=== PATIENT | male | born 1985 | race Caucasian/White ===

== ENCOUNTER 2018-01-31 22:40 | Emergency (ER) | payer MEDICAID ==
[~2018-01-31] VITALS: Ht 190.5 cm; Wt 81.0 kg
[2018-02-01 00:05] VITALS: BP 142/92
[2018-02-01] MEDS ORDERED: CEPH500C5 PO (00:36)
[2018-02-01] MEDS ORDERED: TRAM50TA2 PO (00:36)
[2018-02-01] MEDS ORDERED: SULF1TAB49 PO (00:36)
== END 2018-02-01 01:03 | disposition home or self-care (01) ==
LOC: ER 22:41
DX: L02.413 Cutaneous abscess of right upper limb (principal); L03.113 Cellulitis of right upper limb; F17.200 Nicotine dependence, unspecified, uncomplicated; Z79.899 Other long term (current) drug therapy
CPT/HCPCS: 99283; A4565

== ENCOUNTER 2024-02-08 00:12 | Emergency (ER) | payer MEDICAID ==
[~2024-02-08] VITALS: Ht 190.5 cm; Wt 81.6 kg
[2024-02-08] MEDS ORDERED: iohexol 300mg/ml 100ml inj. ONE (00:28)
[2024-02-08 00:58] VITALS: TEMP 98.9
[2024-02-08 01:31] LABS: APTT 28 SECONDS (22-32); INR 1.1 INR; PROTHROMBIN TIME 11.4 SECONDS (9.0-12.0)
[2024-02-08 01:33] LABS: BASOPHILS % (AUTO) 0.3 % (0-1); EOSINOPHILS % (AUTO) 0.1 % (0-6); HEMATOCRIT 41.8 % (42.0-52.0); HEMOGLOBIN 14.7 g/dl (14.0-17.9); LYMPHOCYTES % (AUTO) 13.1 % (21-51); MEAN CORPUSCULAR HGB CONC 35.1 g/dL (33.0-36.5); MEAN CORPUSCULAR VOLUME 82.5 FL (78-98); MEAN PLATELET VOLUME 9.9 FL (7.4-10.4); MONOCYTES # (AUTO) 0.5 X10'3 (0-0.9); MONOCYTES % (AUTO) 6.2 % (2-12); NEUTROPHILS # (AUTO) 6.3 X10'3 (1.8-7.7); NEUTROPHILS % (AUTO) 80.3 % (42-75); PLATELET COUNT 185 X10'3 (140-440); RED BLOOD COUNT 5.06 X10'6 (4.70-6.10); RED CELL DISTRIBUTION WIDTH 13.6 % (11.5-14.5); WHITE BLOOD COUNT 7.8 X10'3 (4.5-11.0)
[2024-02-08 01:40] LABS: ALANINE AMINOTRANSFERASE 37 U/L (12-78); ALBUMIN 3.9 G/DL (3.4-5.0); ALBUMIN/GLOBULIN RATIO 1.1 (1.1-1.5); ALKALINE PHOSPHATASE 83 IU/L (46-116); ANION GAP 7 (8-16); ASPARTATE AMINO TRANSFERASE 38 U/L (10-37); BILIRUBIN,TOTAL 0.3 MG/DL (0.1-1.0); BLOOD UREA NITROGEN 18 MG/DL (7-18); BUN/CREATININE RATIO 17.6 (10.0-20.0); CALCIUM 9.3 MG/DL (8.5-10.1); CHLORIDE 104 MMOL/L (99-107); CREATININE 1.02 MG/DL (0.60-1.10); ETHANOL < 10 MG/DL (<10); GLUCOSE 90 MG/DL (70-104); POTASSIUM 3.7 MMOL/L (3.5-5.1); SODIUM 139 MMOL/L (135-145); TOTAL CARBON DIOXIDE 28.4 MMOL/L (24-32); TOTAL PROTEIN 7.5 G/DL (6.4-8.2); eCRCL 111 ML/MIN; eGFR 81 ML/MIN
[2024-02-08] MEDS: ondansetron/PF 4mg/2ml inj IV ONE (02:24)
[2024-02-08] MEDS: clindamycin 600mg/D5W 50ml 50 ML IV ONE (02:24)
[2024-02-08] MEDS: morphine 4 MG/ML inj SYRINge IV ONE (02:24)
[2024-02-08 06:45] VITALS: BP 127/79; PULSE 71; RESP 19; O2SAT 98
== END 2024-02-08 07:11 | disposition short-term general hospital (02) ==
LOC: ER 00:13
DX: S02.612B Fracture of condylar process of left mandible, initial encounter for open fracture (principal); S52.501A Unspecified fracture of the lower end of right radius, initial encounter for closed fracture; S02.2XXA Fracture of nasal bones, initial encounter for closed fracture; S02.40CA Maxillary fracture, right side, initial encounter for closed fracture; R07.89 Other chest pain; M25.571 Pain in right ankle and joints of right foot; V89.2XXA Person injured in unspecified motor-vehicle accident, traffic, initial encounter; Y93.89 Activity, other specified; Y92.89 Other specified places as the place of occurrence of the external cause; Y99.8 Other external cause status
CPT/HCPCS: 36415; 70450; 70486; 71260; 72125; 73110; 73610; 74177; 80053; 80320; 84484; 85025; 85610; 85730; 86885; 86900; 86901; 93005; 96365; 96375; 99291; 99292; J2270; J2405; J3490; Q9967